=== PATIENT | female | born 1975 | race Hispanic/Latino ===

== ENCOUNTER 2020-09-26 17:13 | Emergency (ER) | payer OTHER ==
[~2020-09-26] VITALS: Ht 149.9 cm; Wt 93.0 kg
[2020-09-26] MEDS ORDERED: ONDANSETRON HCL INJ 2MG/ML 2ML 2 MG/ML VIAL IV STA (18:03)
[2020-09-26] MEDS ORDERED: MORPHINE SULFATE INJ 4 MG/ML INJ 1ML IV STA (18:03)
[2020-09-26] MEDS ORDERED: CLONIDINE HCL 0.1 MG TAB PO ONE (18:15)
[2020-09-26] MEDS ORDERED: CLONIDINE HCL 0.1 MG TAB ONE (18:36)
[2020-09-26] MEDS ORDERED: MORPHINE SULFATE INJ 4 MG/ML INJ 1ML ONE (18:37)
[2020-09-26] MEDS ORDERED: ONDANSETRON HCL INJ 2MG/ML 2ML 2 MG/ML VIAL ONE (18:37)
[2020-09-26] MEDS ORDERED: FIORICET 50-301 EACH PO (19:50)
[2020-09-26] MEDS ORDERED: NORVASC5 MG PO (19:50)
== END 2020-09-26 20:30 | disposition home or self-care (01) ==
LOC: FSED 17:48
DX: R51.9 Headache, unspecified (principal)
CPT/HCPCS: 70450; 80053; 85025; 99284; J2270; J2405

== ENCOUNTER 2022-07-15 01:14 | Emergency (ER) | payer OTHER ==
[~2022-07-15] VITALS: Ht 149.9 cm; Wt 93.0 kg
[~2022-07-15 01:14] MED LIST: FIORICET 50-301 EACH PO; NORVASC5 MG PO
[2022-07-15 01:47] VITALS: O2SAT 100
[2022-07-15] MEDS ORDERED: KETOROLAC TROMETHAMINE 60 MG/2 ML VIAL ONE (01:55)
[2022-07-15] MEDS ORDERED: KETOROLAC TROMETHAMINE 60 MG/2 ML VIAL IM ONE (02:00)
== END 2022-07-15 02:48 | disposition home or self-care (01) ==
LOC: ER 01:19
DX: K08.89 Other specified disorders of teeth and supporting structures (principal)
CPT/HCPCS: 99282; J1885